=== PATIENT | female | born 1940 | race Caucasian/White ===

== ENCOUNTER 2016-11-19 20:41 | Emergency (ER) | payer MEDICARE ==
[~2016-11-19] VITALS: Ht 165.1 cm; Wt 74.8 kg
[2016-11-19] MEDS ORDERED: hydrALAZINE 20 MG/ML VIAL. ONE (20:58)
[2016-11-19 21:42] LABS: BASO # 0.1 x10^3/uL (0.0-0.2); BASO % 1 % (0-3); EOS % 2 % (0-3); HEMATOCRIT 32.2 % (36.0-47.0); HEMOGLOBIN 10.7 g/dL (12.0-15.5); LYMPH # 2.2 x10^3/uL (1.0-4.8); LYMPH % 23 % (24-48); MEAN CORPUSCULAR HEMOGLOBIN 31 pg (25-35); MEAN CORPUSCULAR HGB CONC 33 g/dL (31-37); MEAN CORPUSCULAR VOLUME 92 fL (79-100); MONO % 8 % (0-9); NEUT % 66 % (31-73); PLATELET COUNT 293 x10^3/uL (140-400); RED BLOOD COUNT 3.49 x10^6/uL (3.50-5.40); RED CELL DISTRIBUTION WIDTH 14.3 % (11.5-14.5); WHITE BLOOD COUNT 9.4 x10^3/uL (4.0-11.0)
[2016-11-19] MEDS ORDERED: hydrALAZINE 20 MG/ML VIAL. IVP ONE ×2 (21:45→22:30)
--- NOTE | 2016-11-19 22:14 | PHYS DOC ---
Past Medical History Past Medical History: CHF, Diabetes-Type II, Renal Failure, Stroke Additional Past Medical Histor: parkensions Past Surgical History: Cholecystectomy, Hysterectomy, Other Additional Past Surgical Histo: shunt left arm, cardiac stents, rt ankle Alcohol Use: None Drug Use: None Adult General Chief Complaint Chief Complaint: DIALYSIS PROBLEM HPI HPI Patient is a 76 year old female who presents here today secondary to bleeding from her dialysis shunt. Per the dialysis notes it appeared that she had lost approximately 2-300 mL of blood. Patient came in by EMS with a pressure dressing and a dialysis clamp on. Patient was still having some bleeding despite that. Patient denies any other symptomatology at this time. Patient has any fevers shakes chills nausea vomiting diarrhea chest pain shortness of breath weakness dizziness her feeling of passing out. Patient does endorse being on any anticoagulant. Patient's physical exam was significant for a small punctate area of bleeding from her dialysis shunt. We are able to apply a significant amount of possible and distal pressure to obtain hemostasis of the dialysis shunt. Once obtained the wound was evaluated. There is a small little puncture site which were able to apply Dermabond to as well as skin clotting factor. A pressure dressing was applied. Patient still had a good bruit and thrill. Patient was monitored in the ER for approximately 1 hour after hemostasis was obtained. Dressing was removed and there is no further active bleeding. Patient was instructed t leave the dressing on until she has her next dialysis. Review of systems Constitutional: Denies fever or chills [] Eyes: Denies change in visual acuity, redness, or eye pain [] All other review systems are negative except as documented in the history of present illness portion. Physical exam Constitutional: Well developed, well nourished, no acute distress, non-toxic appearance. [] HENT: Normocephalic, atraumatic Eyes: conjunctiva normal, no discharge. [] Neck: Normal range of motion, no tenderness, supple, no stridor. [] Cardiovascular:Heart rate regular rhythm, Lungs & Thorax: Bilateral breath sounds clear to auscultation [] Abdomen: Bowel sounds normal, soft, no tenderness, no masses, no pulsatile masses. [] Skin: Warm, dry, Back: No tenderness, Extremities: No tenderness, no cyanosis, see above. Neurologic: Alert and oriented X 3, normal motor function, normal sensory function, no focal deficits noted. [] Psychologic: Affect normal, judgement normal, mood normal. [] Assessment and plan 76-year-old female with end-stage renal disease on hemodialysis presents with bleeding shunt. Hemostasis obtained by applying proximal distal pressure to the shunt site and then applying Dermabond to the area of bleeding. Patient's been monitored for approximately 1 hour without any further bleeding. Patient is clinically hemodynamically stable. Patient will be started on her usual nighttime dose of clonidine 0.3 milligrams and hydralazine 25 by mouth prior to being discharged. Patient's blood pressure has been elevated here. Patient received hydralazine 25 mg IV in the ED with significant improvement in her blood pressure however is still fluctuating. Current Medications Current Medications Current Medications Medications (Trade) Dose Ordered Sig/Nga Start Time Stop Time Status Last Admin Dose Admin Hydralazine HCl (Apresoline) 25 mg 1X ONCE 11/19/16 21:45 11/19/16 21:46 DC 11/19/16 21:00 25 MG Allergies Allergies Allergies Coded Allergies Type Severity Reaction Last Updated Verified Penicillins Allergy Intermediate Rash 11/19/16 Yes Current Patient Data Vital Signs Vital Signs Date Time Temp Pulse Resp B/P (MAP) Pulse Ox O2 Delivery O2 Flow Rate FiO2 11/19/16 21:00 75 236/96 11/19/16 20:45 98.6 16 94 Room Air 98.6 Lab Values Laboratory Tests Test 11/19/16 20:51 White Blood Count 9.4 x10^3/uL (4.0-11.0) Red Blood Count 3.49 x10^6/uL (3.50-5.40) L Hemoglobin 10.7 g/dL (12.0-15.5) L Hematocrit 32.2 % (36.0-47.0) L Mean Corpuscular Volume 92 fL (79-100) Mean Corpuscular Hemoglobin 31 pg (25-35) Mean Corpuscular Hemoglobin Concent 33 g/dL (31-37) Red Cell Distribution Width 14.3 % (11.5-14.5) Platelet Count 293 x10^3/uL (140-400) Neutrophils (%) (Auto) 66 % (31-73) Lymphocytes (%) (Auto) 23 % (24-48) L Monocytes (%) (Auto) 8 % (0-9) Eosinophils (%) (Auto) 2 % (0-3) Basophils (%) (Auto) 1 % (0-3) Neutrophils # (Auto) 6.2 x10^3uL (1.8-7.7) Lymphocytes # (Auto) 2.2 x10^3/uL (1.0-4.8) Monocytes # (Auto) 0.7 x10^3/uL (0.0-1.1) Eosinophils # (Auto) 0.2 x10^3/uL (0.0-0.7) Basophils # (Auto) 0.1 x10^3/uL (0.0-0.2) Laboratory Tests 11/19/16 20:51 EKG EKG [] Radiology/Procedures Radiology/Procedures [] Course & Med Decision Making Course & Med Decision Making Pertinent Labs and Imaging studies reviewed. (See chart for details) [] Dragon Disclaimer Dragon Disclaimer This electronic medical record was generated, in whole or in part, using a voice recognition dictation system. Departure Departure Impression: Primary Impression: Hemorrhage from dialysis shunt Additional Impression: Hypertension Disposition: 01 HOME, SELF-CARE Condition: STABLE Referrals: UNKNOWN PCP NAME (PCP) Patient Instructions: Dialysis (AV) Shunt, Malfunction, Hypertension Additional Instructions: Keep dressing on until you are evaluated by dialysis on Thursday. Problem Qualifiers VIANCA CHILD MD Nov 19, 2016 22:14
[2016-11-19] MEDS ORDERED: cloNIDine HCL 0.1 MG TABLET PO ONE (22:30)
[2016-11-19 22:39] VITALS: BP 210/81
[2016-11-19] MEDS ORDERED: hydrALAZINE 25 MG TABLET PO ONE (22:45)
== END 2016-11-19 22:49 | disposition home or self-care (01) ==
LOC: ER 20:41
DX: T82.838A Hemorrhage due to vascular prosthetic devices, implants and grafts, initial encounter (principal); I13.2 Hypertensive heart and chronic kidney disease with heart failure and with stage 5 chronic kidney disease, or end stage renal disease; I50.9 Heart failure, unspecified; N18.6 End stage renal disease; E11.22 Type 2 diabetes mellitus with diabetic chronic kidney disease; Z99.2 Dependence on renal dialysis; Z86.73 Personal history of transient ischemic attack (TIA), and cerebral infarction without residual deficits; Z88.0 Allergy status to penicillin; Z95.5 Presence of coronary angioplasty implant and graft; Z90.49 Acquired absence of other specified parts of digestive tract; Y92.89 Other specified places as the place of occurrence of the external cause; Y73.3 Surgical instruments, materials and gastroenterology and urology devices (including sutures) associated with adverse incidents; Z90.710 Acquired absence of both cervix and uterus
CPT/HCPCS: 36415; 85027; 96374; 99284; J0360

== ENCOUNTER 2016-11-28 16:55 | Emergency (ER) | payer MEDICARE ==
[~2016-11-28] VITALS: Ht 166.4 cm; Wt 74.8 kg
--- NOTE | 2016-11-28 17:27 | PHYS DOC ---
Past Medical History Past Medical History: CHF, Diabetes-Type II, Renal Failure, Stroke Additional Past Medical Histor: parkensions Past Surgical History: Cholecystectomy, Hysterectomy, Other Additional Past Surgical Histo: shunt left arm, cardiac stents, rt ankle Alcohol Use: None Drug Use: None Adult General Chief Complaint Chief Complaint: DIALYSIS fistula PROBLEM HPI HPI Patient is a 76 year old female hemodialysis patient brought to the ED by her daughter secondary to bleeding dialysis fistula. When patient completed dialysis today, they removed the needles, and her needle site continued to bleed. They worked on it for an hour or more but they were not able to get it to stop bleeding. Patient states she does take Brilinta cardiac stents. She is also supposed to take low-dose aspirin but she stopped it a while back because of problems with bleeding. She did take one about 2 weeks ago when she took one this week. Patient was seen here 9 days ago for a bleeding dialysis fistula, they were able to get it stopped with pressure, skin adhesive, hemostatic topical. She states she has been seen a couple of times in the last couple of months by Dr. Varela and had some type of procedure done on her dialysis fistula. It did work fine for dialysis today. She did complete her dialysis. When she was taking her low-dose aspirin also, she did have problems with nosebleeds. No other bleeding. PCP in [facility]. The patient lives in [place]. [employer] [address] Dr. Sky Review of Systems Review of Systems Constitutional: Denies fever or chills [] Eyes: Denies change in visual acuity, redness, or eye pain [] HENT: Denies nasal congestion or sore throat [] Respiratory: Denies cough or shortness of breath [] Cardiovascular: Denies chest pain GI: Denies abdominal pain, nausea, vomiting, bloody stools or diarrhea [] : Denies dysuria or hematuria [] Musculoskeletal: Denies back pain or joint pain [] Integument: As in history of present illness for left arm dialysis fistula Neurologic: Denies headache, focal weakness or sensory changes [] Allergies Allergies Allergies Coded Allergies Type Severity Reaction Last Updated Verified Penicillins Allergy Intermediate Rash 11/19/16 Yes Physical Exam Physical Exam Constitutional: Well developed, well nourished, no acute distress, non-toxic appearance. Alert, good color, mentating normally. HENT: Normocephalic, atraumatic, bilateral external ears normal, nose normal. [ ] Eyes: conjunctiva normal, no discharge. [] Neck: Normal range of motion, no stridor. [] Cardiovascular:Heart rate regular rhythm, no murmur [] Lungs & Thorax: Bilateral breath sounds clear to auscultation [] Skin: Warm, dry, no erythema, no rash. [] Extremities: Left upper extremity: Dialysis fistula is pulsating and has a good thrill. There is a gauze bandage taped in place with paper tape. The gauze bandage is saturated with blood. Overlying additional loosely wrapped material was removed. There does not appear to be currently active bleeding. The stool neurovascular intact. Neurologic: Alert and oriented X 3, normal motor function, normal sensory function, no focal deficits noted. [] Current Patient Data Vital Signs Vital Signs Date Time Temp Pulse Resp B/P (MAP) Pulse Ox O2 Delivery O2 Flow Rate FiO2 11/28/16 16:57 97.9 79 18 219/87 (131) 96 Room Air 97.9 EKG EKG [] Radiology/Procedures Radiology/Procedures [] Course & Med Decision Making Course & Med Decision Making Pertinent Labs and Imaging studies reviewed. (See chart for details) 76-year-old lady presents with bleeding from her dialysis fistula after dialysis completed today. On presentation, she does not appear to be currently actively bleeding. The patient says she does not think she lost too much blood today. We left the gauze and paper tape that was on the fistula in place, and reinforced with a few more layers of gauze 4 x 4's and a gauze Kerlix wrap. It was not wrapped so tight as to place undue pressure on the fistula that was wrapped snugly. The patient felt that it was comfortable. The, the patient is markedly hypertensive with a systolic over 200. She states that is not unusual for her. She does take multiple blood pressure medicines including clonidine 0.3 mg 3 times a day. She did take her clonidine this morning and this afternoon as usual. She also has taken her other blood pressure medicines including hydralazine and lisinopril. The patient really does not want an IV at this time. We discussed giving her a dose of her clonidine orally and that's what she would prefer to do. The patient took a dose of her own clonidine 0.3 mg. At this time, we will observe her for further bleeding and also watch her blood pressure. Patient is stable and comfortable at this time. Patient was observed for an hour in the ED. She had no further bleeding from her dialysis fistula. Her blood pressure came down to 188/79. She remained stable and comfortable. I discussed the case with Dr. Sky, nephrology. He agrees with discharge of the patient to keep her bandage in place until seen in dialysis on Thursday. He agrees that her elevated blood pressure can be managed with her outpatient medications. I discussed with the patient and her family. The patient is eager to be discharged. She has plenty of medications at home. She is comfortable with discharge. We discussed management if she starts to bleed again. I encouraged her to call 911 if her bleeding is brisk and she is not able to control it, talked about how to manage it with direct pressure if necessary. Patient and family are comfortable with this plan. See instructions for plan. [] Dragon Disclaimer Dragon Disclaimer This electronic medical record was generated, in whole or in part, using a voice recognition dictation system. Departure Departure Impression: Primary Impression: Complication of AV dialysis fistula Additional Impression: Hypertension Disposition: HOME, SELF-CARE Condition: STABLE Referrals: UNKNOWN PCP NAME (PCP) Additional Instructions: Take meds as directed. If you have further bleeding from the fistula, applied direct pressure with a washcloth as a pressure device and return to emergency immediately. Leave the gauze wrap in place until you're seen in dialysis on Thursday. Problem Qualifiers MARIANO CASTILLO MD Nov 28, 2016 17:27
[2016-11-28 18:30] VITALS: BP 188/73
== END 2016-11-28 19:00 | disposition home or self-care (01) ==
LOC: ER 16:55
DX: T82.838A Hemorrhage due to vascular prosthetic devices, implants and grafts, initial encounter (principal); I13.0 Hypertensive heart and chronic kidney disease with heart failure and stage 1 through stage 4 chronic kidney disease, or unspecified chronic kidney disease; E11.22 Type 2 diabetes mellitus with diabetic chronic kidney disease; N18.9 Chronic kidney disease, unspecified; I50.9 Heart failure, unspecified; Z86.73 Personal history of transient ischemic attack (TIA), and cerebral infarction without residual deficits; Z99.2 Dependence on renal dialysis; Z90.49 Acquired absence of other specified parts of digestive tract; Z90.710 Acquired absence of both cervix and uterus; Z88.0 Allergy status to penicillin; Z95.5 Presence of coronary angioplasty implant and graft; Y84.1 Kidney dialysis as the cause of abnormal reaction of the patient, or of later complication, without mention of misadventure at the time of the procedure; Y92.89 Other specified places as the place of occurrence of the external cause
CPT/HCPCS: 99283

== ENCOUNTER 2017-10-01 00:09 | Emergency (ER) | payer MEDICARE | END 2017-10-01 01:08 | disposition home or self-care (01) | LOC: ER 00:09 | DX: S51.832A Puncture wound without foreign body of left forearm, initial encounter (principal); T82.838A Hemorrhage due to vascular prosthetic devices, implants and grafts, initial encounter; I50.9 Heart failure, unspecified; E11.9 Type 2 diabetes mellitus without complications; Z86.73 Personal history of transient ischemic attack (TIA), and cerebral infarction without residual deficits; Z95.5 Presence of coronary angioplasty implant and graft; Z99.2 Dependence on renal dialysis; Z88.0 Allergy status to penicillin; Y84.8 Other medical procedures as the cause of abnormal reaction of the patient, or of later complication, without mention of misadventure at the time of the procedure; Y92.89 Other specified places as the place of occurrence of the external cause | CPT/HCPCS: 12001; 99284-25 ==

== ENCOUNTER 2018-10-18 20:04 | Inpatient (IN) | payer MEDICARE ==
[~2018-10-18] VITALS: Ht 165.1 cm; Wt 70.3 kg
[2018-10-18] MEDS ORDERED: ACETAMINOPHEN 325 MG TABLET. PO ONE (20:30)
[2018-10-18 21:09] LABS: BASO # 0.1 x10^3/uL (0.0-0.2); BASO % 1 % (0-3); EOS # 0.2 x10^3/uL (0.0-0.7); EOS % 2 % (0-3); HEMATOCRIT 32.4 % (36.0-47.0); LYMPH # 1.3 x10^3/uL (1.0-4.8); LYMPH % 20 % (24-48); MEAN CORPUSCULAR HEMOGLOBIN 33 pg (25-35); MEAN CORPUSCULAR HGB CONC 34 g/dL (31-37); MEAN CORPUSCULAR VOLUME 97 fL (79-100); MONO # 0.6 x10^3/uL (0.0-1.1); MONO % 10 % (0-9); NEUT # 4.4 x10^3uL (1.8-7.7); NEUT % 67 % (31-73); PLATELET COUNT 210 x10^3/uL (140-400); RED BLOOD COUNT 3.35 x10^6/uL (3.50-5.40); RED CELL DISTRIBUTION WIDTH 14.7 % (11.5-14.5); WHITE BLOOD COUNT 6.5 x10^3/uL (4.0-11.0)
[2018-10-18 21:15] LABS: CALCIUM 8.8 mg/dL (8.5-10.1); CREATININE 3.4 mg/dL (0.6-1.0); GFR 13.1; POTASSIUM 3.3 mmol/L (3.5-5.1)
[2018-10-18 21:17] LABS: C-REACTIVE PROTEIN 3.7 mg/L (0-3.3)
--- NOTE | 2018-10-18 22:11 | PHYS DOC ---
Past Medical History Past Medical History: CHF, Diabetes-Type II, Renal Failure, Stroke Additional Past Medical Histor: parkensions Past Surgical History: Cholecystectomy, Hysterectomy, Other Additional Past Surgical Histo: shunt left arm, cardiac stents, rt ankle Alcohol Use: None Drug Use: None Adult General Chief Complaint Chief Complaint: DIALYSIS PROBLEM HPI HPI Patient is a 78 year old female with history of end-stage renal disease currently receiving dialysis's presents with bleeding from left arm AV fistula after completing dialysis this afternoon.. Patient is currently on Brilinta. She has had persistent bleeding at AV fistula site despite use of a compression dressing. Patient denies chest pain shortness of breath feeling lightheaded or dizzy. On exam, the patient has a compression bandage over left arm with control bleeding. There are good distal pulses left arm. Upon removing compression dressing, there is slight amount of bright red bleeding/wheezing proceeding from the IV puncture site. The compression dressing was then reapplied. [] Review of Systems Review of Systems Review of symptoms as prescribed. All other review symptoms are negative. All other systems were reviewed and found to be within normal limits, except as documented in this note. Current Medications Current Medications Current Medications Medications (Trade) Dose Ordered Sig/Nga Start Time Stop Time Status Last Admin Dose Admin Acetaminophen (Tylenol) 650 mg 1X ONCE 10/18/18 20:30 10/18/18 20:31 DC 10/18/18 20:26 650 MG Allergies Allergies Allergies Coded Allergies Type Severity Reaction Last Updated Verified Penicillins Allergy Intermediate Rash 11/19/16 Yes Physical Exam Physical Exam Constitutional: Well developed, well nourished, no acute distress, non-toxic appearance. [] HENT: Normocephalic, atraumatic, bilateral external ears normal, oropharynx moist, no oral exudates, nose normal. [] Eyes: PERRLA, EOMI, conjunctiva normal, no discharge. [] Neck: Normal range of motion, no tenderness, supple, no stridor. [] Cardiovascular:Heart rate regular rhythm, no murmur [] Lungs & Thorax: Bilateral breath sounds clear to auscultation [] thrill, steady ooze of bright red bleeding from dialysis catheter puncture site, palpable thrill noted, distal pulses present.. [] Neurologic: Alert and oriented X 3, normal motor function, normal sensory function, no focal deficits noted. [] Psychologic: Affect normal, judgement normal, mood normal. [] Current Patient Data Vital Signs Vital Signs Date Time Temp Pulse Resp B/P (MAP) Pulse Ox O2 Delivery O2 Flow Rate FiO2 10/18/18 20:10 97.7 74 18 156/67 (96) 93 Room Air 97.7 Lab Values Laboratory Tests Test 10/18/18 20:10 10/18/18 20:45 Glucose (Fingerstick) 154 mg/dL (70-99) H White Blood Count 6.5 x10^3/uL (4.0-11.0) Red Blood Count 3.35 x10^6/uL (3.50-5.40) L Hemoglobin 11.0 g/dL (12.0-15.5) L Hematocrit 32.4 % (36.0-47.0) L Mean Corpuscular Volume 97 fL (79-100) Mean Corpuscular Hemoglobin 33 pg (25-35) Mean Corpuscular Hemoglobin Concent 34 g/dL (31-37) Red Cell Distribution Width 14.7 % (11.5-14.5) H Platelet Count 210 x10^3/uL (140-400) Neutrophils (%) (Auto) 67 % (31-73) Lymphocytes (%) (Auto) 20 % (24-48) L Monocytes (%) (Auto) 10 % (0-9) H Eosinophils (%) (Auto) 2 % (0-3) Basophils (%) (Auto) 1 % (0-3) Neutrophils # (Auto) 4.4 x10^3uL (1.8-7.7) Lymphocytes # (Auto) 1.3 x10^3/uL (1.0-4.8) Monocytes # (Auto) 0.6 x10^3/uL (0.0-1.1) Eosinophils # (Auto) 0.2 x10^3/uL (0.0-0.7) Basophils # (Auto) 0.1 x10^3/uL (0.0-0.2) Sodium Level 137 mmol/L (136-145) Potassium Level 3.3 mmol/L (3.5-5.1) L Chloride Level 96 mmol/L (98-107) L Carbon Dioxide Level 28 mmol/L (21-32) Anion Gap 13 (6-14) Blood Urea Nitrogen 24 mg/dL (7-20) H Creatinine 3.4 mg/dL (0.6-1.0) H Estimated GFR (Cockcroft-Gault) 13.1 Glucose Level 153 mg/dL (70-99) H Calcium Level 8.8 mg/dL (8.5-10.1) C-Reactive Protein, Quantitative 3.7 mg/L (0-3.3) H Laboratory Tests 10/18/18 20:45 Laboratory Tests 10/18/18 20:45 EKG EKG [] Radiology/Procedures Radiology/Procedures [Laceration repair Procedure The patient's arm was prepped with sterile saline cleansed, #3-0 [address] was [address] to place a single whip stitched over the puncture site actively bleeding and then tied. Bleeding continued following suture placement. The compression bandage was then reapplied. Patient tolerated the procedure without compl ication] Course & Med Decision Making Course & Med Decision Making Pertinent Labs and Imaging studies reviewed. (See chart for details) [Persistent bleeding from dialysis AV fistula puncture site. Pressure controlled, H&H and platelets stable. Case reviewed with Dr. Rushing on-call for vascular surgery. Recommendations are for suture placement and continued compression dressing. Dr. Rushing to see in the morning. Will admit to the hospitalist service.] Dragon Disclaimer Dragon Disclaimer This electronic medical record was generated, in whole or in part, using a voice recognition dictation system. Departure Departure Impression: Primary Impression: Bleeding from dialysis shunt Disposition: ADMITTED INPATIENT Admitting Physician: Other (Evelyn) Condition: STABLE Referrals: DIONICIO MEDINA MD (PCP) EVA HOGAN DO October 18, 2018 22:11
[2018-10-18] MEDS ORDERED: ONDANSETRON PF 4 MG/2 ML VIAL. IV PRN (22:15)
[2018-10-18 23:20] VITALS: BP 145/52
[2018-10-18] MEDS ORDERED: SEVE800T9 PO (23:50)
[2018-10-18] MEDS ORDERED: SERT100T8 PO (23:53)
[2018-10-19] VITALS (7 sets, daily range): BP systolic 116–180; BP diastolic 53–86
[2018-10-19] MEDS ORDERED: LEVO50TA5 PO (00:15)
[2018-10-19] MEDS ORDERED: CHOL200044 PO (00:15)
[2018-10-19] MEDS ORDERED: TICA90TA PO (00:15)
[2018-10-19] MEDS ORDERED: NIFE60TA16 PO (00:15)
[2018-10-19] MEDS ORDERED: CARV25TA2 PO (00:15)
[2018-10-19] MEDS ORDERED: LISI-130 PO (00:15)
[2018-10-19] MEDS ORDERED: INSU100I17 SQ (00:15)
[2018-10-19] MEDS ORDERED: PRAV40TA2 PO (00:15)
[2018-10-19] MEDS ORDERED: CALC300T4 PO (00:15)
[2018-10-19] MEDS ORDERED: HYDR-2869 PO (00:15)
[2018-10-19 04:05] LABS: BASO % 1 % (0-3); EOS # 0.1 x10^3/uL (0.0-0.7); EOS % 3 % (0-3); HEMATOCRIT 29.5 % (36.0-47.0); LYMPH % 19 % (24-48); MEAN CORPUSCULAR HEMOGLOBIN 33 pg (25-35); MEAN CORPUSCULAR HGB CONC 34 g/dL (31-37); MEAN CORPUSCULAR VOLUME 97 fL (79-100); MONO # 0.6 x10^3/uL (0.0-1.1); MONO % 11 % (0-9); NEUT # 3.7 x10^3uL (1.8-7.7); NEUT % 67 % (31-73); PLATELET COUNT 185 x10^3/uL (140-400); RED BLOOD COUNT 3.05 x10^6/uL (3.50-5.40); RED CELL DISTRIBUTION WIDTH 14.7 % (11.5-14.5); WHITE BLOOD COUNT 5.5 x10^3/uL (4.0-11.0)
[2018-10-19 04:27] LABS: CALCIUM 8.2 mg/dL (8.5-10.1); CREATININE 3.7 mg/dL (0.6-1.0); GFR 11.9; POTASSIUM 3.3 mmol/L (3.5-5.1)
--- NOTE | 2018-10-19 08:10 | PDOC ---
Provider Note Provider Note Vascular Surgery Consult Dictated 78 year old female with ESRD on dialysis with a left upper arm AV access which was placed over a year ago at [facility]. She came to the ER because of bleeding from the dialysis IV access site. The bleeding eventually stopped with pressure and a suture. She reports episodes of prolonged bleeding from access sites in the past. The left upper arm fistula is patent, no further bleeding, suture in place, no skin breakdown/ulceration, mild swelling of the forearm. Recommend a left arm fistulogram to evaluate the fistula for possible outflow stenosis causing high pressure. No surgical intervention needed at this point. She has a left carotid bruit on exam, will obtain a duplex scan. HOLLY DE ANDA MD October 19, 2018 08:10
[2018-10-19] MEDS ORDERED: DEXTROSE 50% 25 GM / 50ML DISP.SYRIN. IV PRN (08:30)
[2018-10-19] MEDS: INSULIN LISPRO 300 UNITS/3 ML INSULN.PEN. SQ SCH ×5 (08:30→17:28)
[2018-10-19] MEDS ORDERED: ACETAMINOPHEN 500 MG TABLET PO PRN (08:30)
[2018-10-19] MEDS ORDERED: hydrALAZINE 20 MG/ML VIAL. IVP PRN (08:30)
[2018-10-19 09:34] LABS: PROTHROMBIN TIME PATIENT 15.7 SEC (11.7-14.0)
--- NOTE | 2018-10-19 09:48 | CONS ---
DATE OF CONSULTATION: 10/19/2018 CHIEF COMPLAINT: Bleeding from her left arm dialysis access. HISTORY OF PRESENT ILLNESS: The patient is a 78-year-old female with end-stage renal disease, on chronic hemodialysis. She uses a left upper arm AV fistula, which was placed by Dr. Serrato at [facility] over a year ago. She reports that she has had revisions to this fistula in the past. After dialysis yesterday, it was reported that she had continued bleeding from one of her IV access sites. She came to the Emergency Department and pressure was held on the area for an extensive amount of time, this eventually slowed the bleeding, but did not completely stopped it. I recommended to the ER doctor since the skin was normal around the access site to place a suture within it and this stopped the bleeding. She was admitted to the hospital from the Emergency Department. She has had no more further bleeding up in the floor from her access site. She does state that she has had episodes of prolonged bleeding from IV access sites in the recent past. She reports no pain in her left arm. She reports no swelling in the left arm. She reports no chest pain or shortness of breath. REVIEW OF SYSTEMS: A 10-point review of systems was performed, which is otherwise negative besides what is mentioned in the history of present illness. PAST MEDICAL HISTORY: Includes: 1. Congestive heart failure. 2. Diabetes mellitus. 3. End-stage renal disease, on chronic hemodialysis. 4. History of stroke. 5. Coronary artery disease. PAST SURGICAL HISTORY: Includes; 1. Cholecystectomy, left upper arm AV access. 2. Coronary stents. 3. Hysterectomy. 4. Left ankle fracture. ALLERGIES: Include PENICILLIN, AMLODIPINE, LATEX, MORPHINE, PREDNISONE. MEDICATIONS: Please see her full MAR. SOCIAL HISTORY: She does not smoke or use alcohol. FAMILY HISTORY: Noncontributory for her current problem. PHYSICAL EXAMINATION: GENERAL: The patient is currently awake and alert. She is in no apparent distress. VITAL SIGNS: Her last blood pressure was 170/62, pulse of 75, respirations 18. She is 98.7 temperature and afebrile. She is 94% on room air. NECK: Supple. CHEST: She does have a left-sided carotid bruit on examination. I do not hear a right bruit. HEART: Regular rate and rhythm. LUNGS: Bilateral breath sounds to auscultation. ABDOMEN: Soft, nondistended and nontender. EXTREMITIES: Her left arm and the upper arm has an AV fistula. Fistula is very mature and dilated throughout the upper arm. The wrap was removed. The two access sites from dialysis yesterday are not bleeding. One of them has a suture in place where it had prolonged bleeding and there is no hematoma. Her skin is normal and healthy with no ulceration or breakdown. There is a thrill and bruit within the fistula tract. She has mild swelling of her forearm and hand with normal motor and sensory function. Her right arm is warm without access and no swelling. Her bilateral lower extremities are warm with palpable pedal pulses. She has mild left leg swelling and redness she says from a recent fall and injury. NEUROLOGIC: She is awake and alert, oriented x 3 and alert. IMPRESSION: End-stage renal disease, on chronic hemodialysis through a left upper arm arteriovenous fistula which had prolonged bleeding from her access site from dialysis yesterday. PLAN: The patient had prolonged bleeding which required suture repair from her dialysis access site yesterday. The skin is healthy with no ulceration. There is no hematoma. There is no further bleeding. I do recommend a fistulogram to evaluate the fistula and possible outflow obstruction, which may be causing high pressures and bleeding. We will order this with Interventional Radiology today. No surgical intervention is needed at this time for the fistula since there is no further bleeding. She also has a carotid artery bruit heard on examination. I have ordered a carotid artery duplex scan. HOLLY DE ANDA MD DR: KYLIE/natasha JOB#: [id number] / [id number]
--- NOTE | 2018-10-19 10:00 | RAD ---
EXAM: Carotid Doppler sonogram. HISTORY: Carotid bruit. TECHNIQUE: Mitchell scale and color Doppler sonographic evaluation of the neck with spectral waveform analysis was performed and static images are submitted for review. FINDINGS: There is mild atherosclerotic plaque within the carotid bifurcations. The peak systolic velocity within the right common carotid artery is 86 cm/sec. The peak systolic velocity within the right internal carotid artery is 79 cm/sec and the end diastolic velocity within the right internal carotid artery is 20 cm/sec. The right ICA/CCA ratio is 0.91. The peak systolic velocity within the left common carotid artery is 181 cm/sec. The peak systolic velocity within the left internal carotid artery is 159 cm/sec and the end diastolic velocity within the left internal carotid artery is 28 cm/sec. The left ICA/CCA ratio is 0.87. There is normal antegrade flow within the right vertebral artery. There is to and fro flow within the left vertebral artery. There is an increased peak systolic velocity within the left subclavian artery, measuring 237 cm/s. IMPRESSION: 1. Elevated peak systolic velocity within the left ICA. Despite a normal left ICA to CCA ratio, this suggests 50-69% stenosis. 2. Elevated peak systolic velocity within the left subclavian artery, suggesting hemodynamically significant stenosis. There is also an abnormal waveform within the left vertebral artery which may be due to pre-subclavian steal. 2. Mild atherosclerotic plaque within the carotid bifurcations. PQRS Compliance Statement - Stenosis calculations for CT, MR and conventional angiography are based upon measurement of the distal ICA diameter in accordance with the NASCET methodology. Stenosis calculations for carotid ultrasound studies are derived from validated velocity criteria which are known to correlate with the NASCET methodology. Electronically signed by: Melisa Dunne MD (10/19/2018 9:57 AM) [place] [id number]
[2018-10-19] MEDS: CARVEDILOL 12.5 MG TABLET. PO SCH ×2 (10:21→17:23)
[2018-10-19] MEDS: CALCIUM CARBONATE 500 MG TAB.CHEW PO SCH ×3 (10:21→21:06)
[2018-10-19] MEDS: LEVOTHYROXINE 50 MCG TABLET PO SCH (10:22)
[2018-10-19] MEDS: SERTRALINE 50 MG TABLET. PO SCH (10:23)
[2018-10-19] MEDS: LISINOPRIL 20 MG TABLET PO SCH (10:23)
[2018-10-19] MEDS: CHOLECALCIFEROL (VITAMIN D3) 1,000 UNIT TABLET PO SCH (10:23)
[2018-10-19] MEDS: SEVELAMER CARBONATE 800 MG TABLET. PO SCH ×2 (10:24→10:53)
--- NOTE | 2018-10-19 10:44 | PDOC1 ---
History and Physical Date of Admission Date of Admission DATE: 10/19/18 TIME: 10:38 Identification/Chief Complaint Chief Complaint bleeding left AV fistula Source Source: Caregiver, Chart review, Patient History of Present Illness History of Present Illness 78 year old white female, ESRD on dialysis, she has had multiple issues mostly bleeding from that left AV fistula. During my encounter she is quite frustrated and annoyed already from recurrent issues with this AV fistula. Vascular surgery has seen her and plan for fistulogram and ultrasound. Recommended her to be strict nothing by mouth and she isn't happy about that. The rest of the labs are ESRD numbers namely creatinine 3.7 with a GFR in the teens, potassium 3.3. Blood pressure on the high side. Hemoglobin 10, I have reconciled home meds most especially blood pressure meds. Hold Brilinta for now since bleeding issues She Had the left AV fistula placed in [facility] about a year ago SHe Wants to go home and wants minimal tests as possible to solve her problem-as per her words PAST MEDICAL HISTORY: Includes: 1. Congestive heart failure. 2. Diabetes mellitus. 3. End-stage renal disease, on chronic hemodialysis. 4. History of stroke. 5. Coronary artery disease. PAST SURGICAL HISTORY: Includes; 1. Cholecystectomy, left upper arm AV access. 2. Coronary stents. 3. Hysterectomy. 4. Left ankle fracture. ALLERGIES: Include PENICILLIN, AMLODIPINE, LATEX, MORPHINE, PREDNISONE. Past Medical History Cardiovascular: HTN Heme/Onc: Anemia NOS Renal/: Chronic renal insuff Past Surgical History Past Surgical History: Other (av fistula creation, left arm) Family History Family History: Hypertension Social History Smoke: No ALCOHOL: none Drugs: None Current Problem List Problem List Problems Medical Problems: (1) Bleeding from dialysis shunt Status: Acute Current Medications Current Medications Current Medications Acetaminophen (Tylenol) 650 mg 1X ONCE PO Last administered on 10/18/18at 20:26; Start 10/18/18 at 20:30; Stop 10/18/18 at 20:31; Status DC Ondansetron HCl (Zofran) 4 mg PRN Q8HRS PRN IV NAUSEA/VOMITING; Start 10/18/18 at 22:15; Stop 10/19/18 at 03:36; Status DC Acetaminophen (Tylenol) 500 mg PRN Q6HRS PRN PO MILD PAIN / TEMP; Start 10/19/18 at 08:30 Hydralazine HCl (Apresoline Inj) 10 mg PRN Q4HRS PRN IVP ELEVATED BP, SEE COMMENTS; Start 10/19/18 at 08:30 Insulin Human Lispro (HumaLOG) 0-9 UNITS TIDWMEALS SQ ; Start 10/19/18 at 12:00 Dextrose (Dextrose 50%-Water Syringe) 12.5 gm PRN Q15MIN PRN IV SEE COMMENTS; Start 10/19/18 at 08:30 Lisinopril (Prinivil) 40 mg DAILY PO Last administered on 10/19/18 10:23; Start 10/19/18 at 09:00 Sevelamer Carbonate (Renvela) 1,600 mg TIDWMEALS PO Last administered on 10/19/18 10:24; Start 10/19/18 at 09:00 Calcium Carbonate/ Glycine (Tums) 500 mg TID PO Last administered on 10/19/18 10:21; Start 10/19/18 at 09:00 Carvedilol (Coreg) 25 mg BIDWMEALS PO Last administered on 10/19/18 10:21; Start 10/19/18 at 08:30 Vitamin D (Vitamin D3) 2,000 unit DAILY PO Last administered on 10/19/18 10:23; Start 10/19/18 at 09:00 Hydralazine HCl (Apresoline) 100 mg TID PO Last administered on 10/19/18at 10:24; Start 10/19/18 at 09:00 Insulin Human Lispro (HumaLOG) 5 units TIDWMEALS SQ ; Start 10/19/18 at 08:30 Levothyroxine Sodium (Synthroid) 50 mcg DAILY06 PO Last administered on 10/19/18 10:22; Start 10/19/18 at 08:30 Nifedipine (Procardia Xl) 60 mg DAILY PO Last administered on 10/19/18 10:22; Start 10/19/18 at 09:00 Atorvastatin Calcium (Lipitor) 10 mg QHS PO ; Start 10/19/18 at 21:00 Sertraline HCl (Zoloft) 150 mg DAILY PO Last administered on 10/19/18at 10:23; Start 10/19/18 at 09:00 Active Scripts Active Reported Levothyroxine Sodium 50 Mcg Tablet 1 Tab PO DAILY D3-2000 (Cholecalciferol (Vitamin D3)) 2,000 Unit Capsule 2,000 Unit PO DAILY Tums X-Str (Calcium Carbonate) 300 Mg Tab.chew 300 Mg PO TID Brilinta (Ticagrelor) 90 Mg Tablet 90 Mg PO DAILY Carvedilol 25 Mg Tablet 25 Mg PO BIDWMEALS PRN Hydralazine Hcl 50 Mg Tablet 2 Tab PO TID Lisinopril 40 Mg Tablet 1 Tab PO DAILY Nifedipine Er (Nifedipine) 60 Mg Tab.er.24 1 Tab PO DAILY Novolog Flexpen (Insulin Aspart) 100 Unit/1 Ml Insuln.pen 5 Unit SQ TID Pravastatin Sodium 40 Mg Tablet 1 Tab PO QHS Sertraline Hcl 100 Mg Tablet 1.5 Tab PO DAILY Renvela (Sevelamer Carbonate) 800 Mg Tablet 2 Tab PO TID Allergies Allergies: Coded Allergies: Penicillins (Verified Allergy, Intermediate, Rash, 11/19/16) amlodipine (Verified Allergy, Unknown, 10/19/18) latex (Verified Allergy, Unknown, 10/19/18) morphine (Verified Allergy, Unknown, 10/19/18) ondansetron (Verified Allergy, Unknown, 10/19/18) prednisone (Verified Allergy, Unknown, 10/19/18) ROS Review of System A 14 point ROS was completed with the following noted as positive: Other systems reviewed and negative. \CONSTITUTIONAL: No fever or chills EYES: No recent changes SKIN: No rash or itching CARDIOVASCULAR: No chest pain, syncope, palpitations, or edema RESPIRATORY: No SOB or cough GASTROINTESTINAL: No nausea, vomiting or abdominal pain NEUROLOGICAL: No headaches or weakness ENDOCRINE: No cold or heat intolerance GENITOURINARY: No urgency or frequency of urination MUSCULOSKELETAL: No back pain or joint pain LYMPHATICS: No enlarged lymph nodes PSYCHIATRIC: No anxiety or depression Physical Exam General: Alert, Oriented X3, Cooperative, No acute distress HEENT: Atraumatic, PERRLA, EOMI Lungs: Clear to auscultation, Normal air movement Heart: S1S2, RRR, no thrills, no rubs, no gallops, no murmurs Cardiovascular: S1, S2 Abdomen: Normal bowel sounds, Soft, No tenderness, No hepatosplenomegaly, No masses Rectal Exam: not examined PELVIC: Nml ext genitalia Extremities: No clubbing, No cyanosis, Normal pulses, Other (dressing on that left arm) Skin: No rashes, No breakdown, No significant lesion Neuro: Normal gait, Normal speech, Strength at 5/5 X4 ext, Normal tone, Sensation intact, Cranial nerves 3-12 NL, Reflexes 2+ Psych/Mental Status: Mental status NL, Mood NL Vitals Vitals Vital Signs Date Time Temp Pulse Resp B/P (MAP) Pulse Ox O2 Delivery O2 Flow Rate FiO2 10/19/18 10:24 75 170/62 10/19/18 07:00 98.7 18 94 Room Air 98.7 10/18/18 23:05 2.0 Labs Labs Laboratory Tests Test 10/18/18 20:10 10/18/18 20:45 10/19/18 02:50 10/19/18 08:42 Glucose (Fingerstick) 154 mg/dL (70-99) White Blood Count 6.5 x10^3/uL (4.0-11.0) 5.5 x10^3/uL (4.0-11.0) Red Blood Count 3.35 x10^6/uL (3.50-5.40) 3.05 x10^6/uL (3.50-5.40) Hemoglobin 11.0 g/dL (12.0-15.5) 10.0 g/dL (12.0-15.5) Hematocrit 32.4 % (36.0-47.0) 29.5 % (36.0-47.0) Mean Corpuscular Volume 97 fL (79-100) 97 fL (79-100) Mean Corpuscular Hemoglobin 33 pg (25-35) 33 pg (25-35) Mean Corpuscular Hemoglobin Concent 34 g/dL (31-37) 34 g/dL (31-37) Red Cell Distribution Width 14.7 % (11.5-14.5) 14.7 % (11.5-14.5) Platelet Count 210 x10^3/uL (140-400) 185 x10^3/uL (140-400) Neutrophils (%) (Auto) 67 % (31-73) 67 % (31-73) Lymphocytes (%) (Auto) 20 % (24-48) 19 % (24-48) Monocytes (%) (Auto) 10 % (0-9) 11 % (0-9) Eosinophils (%) (Auto) 2 % (0-3) 3 % (0-3) Basophils (%) (Auto) 1 % (0-3) 1 % (0-3) Neutrophils # (Auto) 4.4 x10^3uL (1.8-7.7) 3.7 x10^3uL (1.8-7.7) Lymphocytes # (Auto) 1.3 x10^3/uL (1.0-4.8) 1.0 x10^3/uL (1.0-4.8) Monocytes # (Auto) 0.6 x10^3/uL (0.0-1.1) 0.6 x10^3/uL (0.0-1.1) Eosinophils # (Auto) 0.2 x10^3/uL (0.0-0.7) 0.1 x10^3/uL (0.0-0.7) Basophils # (Auto) 0.1 x10^3/uL (0.0-0.2) 0.0 x10^3/uL (0.0-0.2) Sodium Level 137 mmol/L (136-145) 139 mmol/L (136-145) Potassium Level 3.3 mmol/L (3.5-5.1) 3.3 mmol/L (3.5-5.1) Chloride Level 96 mmol/L (98-107) 99 mmol/L (98-107) Carbon Dioxide Level 28 mmol/L (21-32) 28 mmol/L (21-32) Anion Gap 13 (6-14) 12 (6-14) Blood Urea Nitrogen 24 mg/dL (7-20) 26 mg/dL (7-20) Creatinine 3.4 mg/dL (0.6-1.0) 3.7 mg/dL (0.6-1.0) Estimated GFR (Cockcroft-Gault) 13.1 11.9 Glucose Level 153 mg/dL (70-99) 169 mg/dL (70-99) Calcium Level 8.8 mg/dL (8.5-10.1) 8.2 mg/dL (8.5-10.1) C-Reactive Protein, Quantitative 3.7 mg/L (0-3.3) Prothrombin Time 15.7 SEC (11.7-14.0) Prothromb Time International Ratio 1.3 (0.8-1.1) Activated Partial Thromboplast Time 42 SEC (24-38) Test 10/19/18 08:56 Glucose (Fingerstick) 108 mg/dL (70-99) Laboratory Tests Test 10/18/18 20:10 10/18/18 20:45 10/19/18 02:50 10/19/18 08:42 Glucose (Fingerstick) 154 mg/dL (70-99) White Blood Count 6.5 x10^3/uL (4.0-11.0) 5.5 x10^3/uL (4.0-11.0) Red Blood Count 3.35 x10^6/uL (3.50-5.40) 3.05 x10^6/uL (3.50-5.40) Hemoglobin 11.0 g/dL (12.0-15.5) 10.0 g/dL (12.0-15.5) Hematocrit 32.4 % (36.0-47.0) 29.5 % (36.0-47.0) Mean Corpuscular Volume 97 fL (79-100) 97 fL (79-100) Mean Corpuscular Hemoglobin 33 pg (25-35) 33 pg (25-35) Mean Corpuscular Hemoglobin Concent 34 g/dL (31-37) 34 g/dL (31-37) Red Cell Distribution Width 14.7 % (11.5-14.5) 14.7 % (11.5-14.5) Platelet Count 210 x10^3/uL (140-400) 185 x10^3/uL (140-400) Neutrophils (%) (Auto) 67 % (31-73) 67 % (31-73) Lymphocytes (%) (Auto) 20 % (24-48) 19 % (24-48) Monocytes (%) (Auto) 10 % (0-9) 11 % (0-9) Eosinophils (%) (Auto) 2 % (0-3) 3 % (0-3) Basophils (%) (Auto) 1 % (0-3) 1 % (0-3) Neutrophils # (Auto) 4.4 x10^3uL (1.8-7.7) 3.7 x10^3uL (1.8-7.7) Lymphocytes # (Auto) 1.3 x10^3/uL (1.0-4.8) 1.0 x10^3/uL (1.0-4.8) Monocytes # (Auto) 0.6 x10^3/uL (0.0-1.1) 0.6 x10^3/uL (0.0-1.1) Eosinophils # (Auto) 0.2 x10^3/uL (0.0-0.7) 0.1 x10^3/uL (0.0-0.7) Basophils # (Auto) 0.1 x10^3/uL (0.0-0.2) 0.0 x10^3/uL (0.0-0.2) Sodium Level 137 mmol/L (136-145) 139 mmol/L (136-145) Potassium Level 3.3 mmol/L (3.5-5.1) 3.3 mmol/L (3.5-5.1) Chloride Level 96 mmol/L (98-107) 99 mmol/L (98-107) Carbon Dioxide Level 28 mmol/L (21-32) 28 mmol/L (21-32) Anion Gap 13 (6-14) 12 (6-14) Blood Urea Nitrogen 24 mg/dL (7-20) 26 mg/dL (7-20) Creatinine 3.4 mg/dL (0.6-1.0) 3.7 mg/dL (0.6-1.0) Estimated GFR (Cockcroft-Gault) 13.1 11.9 Glucose Level 153 mg/dL (70-99) 169 mg/dL (70-99) Calcium Level 8.8 mg/dL (8.5-10.1) 8.2 mg/dL (8.5-10.1) C-Reactive Protein, Quantitative 3.7 mg/L (0-3.3) Prothrombin Time 15.7 SEC (11.7-14.0) Prothromb Time International Ratio 1.3 (0.8-1.1) Activated Partial Thromboplast Time 42 SEC (24-38) Test 10/19/18 08:56 Glucose (Fingerstick) 108 mg/dL (70-99) VTE Prophylaxis Ordered VTE Prophylaxis Devices: Contraindicated VTE Pharmacological Prophylaxi: Contraindicated Assessment/Plan Assessment/Plan Recurrent bleeding left AV fistula, left arm-for fistulogram and ultrasound ESRD on dialysis Mild hypokalemia Hx CHF, possibly diastolic Diabetes mellitus controlled History CAD and stroke with cardiac stents on Brilinta PLAN: Admit 2 MN Vascular surgery ordered fistulogram and ultrasound Nothing by mouth per vascular surgery recommendations Replace K only 20 mEq Dialysis per renal Discussed with patient and RN Full code Sliding-scale insulin, other supportive meds Hold Camilo I have reconciled home meds except JOSE Sandhu MD October 19, 2018 10:44
[2018-10-19] MEDS ORDERED: POTASSIUM CHLORIDE 20 MEQ TABLET.ER. PO ONE (10:45)
[2018-10-19] MEDS ORDERED: LIDOCAINE WITH 8.4% SOD BICARB 3 ML DISP.SYRIN. ONE (12:30)
[2018-10-19] MEDS ORDERED: IODIXANOL 320 MG/ML 100 ML VIAL. ONE (12:31)
[2018-10-19] MEDS ORDERED: fentaNYL PF VIAL 100 MCG/2 ML VIAL ONE (12:40)
[2018-10-19] MEDS ORDERED: HEPARIN for IV BOLUS 10,000 UNIT/10 ML VIAL. ONE ×2 (12:40→13:10)
[2018-10-19] MEDS ORDERED: MIDAZOLAM HCL/PF 2 MG/2 ML VIAL. ONE (12:40)
[2018-10-19] MEDS ORDERED: MIDAZOLAM HCL/PF 2 MG/2 ML VIAL. IV ONE (12:45)
[2018-10-19] MEDS ORDERED: IODIXANOL 320 MG/ML 100 ML VIAL. IART ONE (12:45)
[2018-10-19] MEDS ORDERED: fentaNYL PF VIAL 100 MCG/2 ML VIAL IV ONE (12:45)
[2018-10-19] MEDS ORDERED: LIDOCAINE WITH 8.4% SOD BICARB 3 ML DISP.SYRIN. IJ ONE (12:45)
[2018-10-19] MEDS ORDERED: CONTRAST GIVEN. MC PRN (12:45)
[2018-10-19] MEDS ORDERED: IODIXANOL 320 MG/ML 50ML VIAL. ONE (13:09)
[2018-10-19] MEDS ORDERED: HEPARIN for IV BOLUS 10,000 UNIT/10 ML VIAL. IV ONE (13:15)
[2018-10-19] MEDS ORDERED: IODIXANOL 320 MG/ML 50ML VIAL. IART ONE (13:15)
--- NOTE | 2018-10-19 13:15 | PDOC2 ---
CONSULT Date of Consult Date of Consult DATE: 10/19/18 TIME: 13:02 Reason for Consult Reason for Consult: ESRD Source Source: Chart review, Patient History of Present Illness Reason for Visit: Pt is a 78 year old white female, ESRD on dialysis, she is hospitalized for bleeding from that left AV fistula. She goes to [facility] Op [facility]- Dr. Varela , she reports has been on HD for approx 6 years. She doesnt have any significant RRF Currently she denies any complaints, states she wants to take care of the fistula and go home today Vascular surgery has seen her and plan for fistulogram and ultrasound. Past Medical History Cardiovascular: HTN Heme/Onc: Anemia NOS Renal/: Chronic renal insuff Past Surgical History Past Surgical History: Other (av fistula creation, left arm) Family History Family History: Hypertension Social History No ALCOHOL: none Drugs: None Current Problem List Problem List Problems Medical Problems: (1) Bleeding from dialysis shunt Status: Acute Current Medications Current Medications Current Medications Acetaminophen (Tylenol) 650 mg 1X ONCE PO Last administered on 10/18/18at 20:26; Start 10/18/18 at 20:30; Stop 10/18/18 at 20:31; Status DC Ondansetron HCl (Zofran) 4 mg PRN Q8HRS PRN IV NAUSEA/VOMITING; Start 10/18/18 at 22:15; Stop 10/19/18 at 03:36; Status DC Acetaminophen (Tylenol) 500 mg PRN Q6HRS PRN PO MILD PAIN / TEMP; Start 09/30 06/19 at 08:30 Hydralazine HCl (Apresoline Inj) 10 mg PRN Q4HRS PRN IVP ELEVATED BP, SEE COMMENTS; Start 10/19/18 at 08:30 Insulin Human Lispro (HumaLOG) 0-9 UNITS TIDWMEALS SQ ; Start 10/19/18 at 12:00 Dextrose (Dextrose 50%-Water Syringe) 12.5 gm PRN Q15MIN PRN IV SEE COMMENTS; Start 10/19/18 at 08:30 Lisinopril (Prinivil) 40 mg DAILY PO Last administered on 10/19/18at 10:23; S tart 10/19/18 at 09:00 Sevelamer Carbonate (Renvela) 1,600 mg TIDWMEALS PO Last administered on 5/21/19at 10:24; Start 10/19/18 at 09:00; Stop 10/19/18 at 12:09; Status DC Calcium Carbonate/ Glycine (Tums) 500 mg TID PO Last administered on 10/19/18 10:21; Start 10/19/18 at 09:00 Carvedilol (Coreg) 25 mg BIDWMEALS PO Last administered on 10/19/18 10:21; Start 10/19/18 at 08:30 Vitamin D (Vitamin D3) 2,000 unit DAILY PO Last administered on 10/19/18 10:23; Start 10/19/18 at 09:00 Hydralazine HCl (Apresoline) 100 mg TID PO Last administered on 10/19/18 10:24; Start 10/19/18 at 09:00 Insulin Human Lispro (HumaLOG) 5 units TIDWMEALS SQ ; Start 10/19/18 at 08:30 Levothyroxine Sodium (Synthroid) 50 mcg DAILY06 PO Last administered on 10/19/18 10:22; Start 10/19/18 at 08:30 Nifedipine (Procardia Xl) 60 mg DAILY PO Last administered on 10/19/18 10:22; Start 10/19/18 at 09:00 Atorvastatin Calcium (Lipitor) 10 mg QHS PO ; Start 10/19/18 at 21:00 Sertraline HCl (Zoloft) 150 mg DAILY PO Last administered on 10/19/18at 10:23; Start 10/19/18 at 09:00 Potassium Chloride (Klor-Con) 20 meq 1X ONCE PO ; Start 10/19/18 at 10:45; Stop 10/19/18 at 10:46; Status DC Lidocaine/Sodium Bicarbonate (Buffered Lidocaine 1%) 3 ml STK-MED ONCE .ROUTE ; Start 10/19/18 at 12:30; Stop 10/19/18 at 12:31; Status DC Heparin Sodium/ Sodium Chloride 500 ml @ As Directed STK-MED ONCE .ROUTE ; Start 10/19/18 at 12:31; Stop 10/19/18 at 12:32; Status DC Iodixanol (Visipaque 320) 100 ml STK-MED ONCE .ROUTE ; Start 10/19/18 at 12:31; Stop 10/19/18 at 12:32; Status DC Heparin Sodium/ Sodium Chloride (HEPARIN for ARTERIAL LINE FLUSH) 1,000 unit 1X ONCE IART ; Start 10/19/18 at 12:45; Stop 10/19/18 at 12:46; Status DC Lidocaine/Sodium Bicarbonate (Buffered Lidocaine 1%) 3 ml 1X ONCE IJ ; Start 10/19/18 at 12:45; Stop 10/19/18 at 12:46; Status DC Midazolam HCl (Versed) 2 mg 1X ONCE IV ; Start 10/19/18 at 12:45; Stop 10/19/18 at 12:46; Status DC Fentanyl Citrate (Fentanyl 2ml Vial) 100 mcg 1X ONCE IV ; Start 10/19/18 at 12:45; Stop 10/19/18 at 12:46; Status DC Iodixanol (Visipaque 320) 100 ml 1X ONCE IART ; Start 10/19/18 at 12:45; Stop 10/19/18 at 12:46; Status DC Info (CONTRAST GIVEN -- Rx MONITORING) 1 each PRN DAILY PRN MC SEE COMMENTS; Start 10/19/18 at 12:45; Stop 10/21/18 at 12:44 Midazolam HCl (Versed) 2 mg STK-MED ONCE .ROUTE ; Start 10/19/18 at 12:40; Stop 10/19/18 at 12:41; Status DC Fentanyl Citrate (Fentanyl 2ml Vial) 100 mcg STK-MED ONCE .ROUTE ; Start 10/19/18 at 12:40; Stop 10/19/18 at 12:41; Status DC Heparin Sodium (Porcine) (Heparin Sodium) 10,000 unit STK-MED ONCE .ROUTE ; Start 10/19/18 at 12:40; Stop 10/19/18 at 12:41; Status DC Active Scripts Active Reported Levothyroxine Sodium 50 Mcg Tablet 1 Tab PO DAILY D3-2000 (Cholecalciferol (Vitamin D3)) 2,000 Unit Capsule 2,000 Unit PO DAILY Tums X-Str (Calcium Carbonate) 300 Mg Tab.chew 300 Mg PO TID Brilinta (Ticagrelor) 90 Mg Tablet 90 Mg PO DAILY Carvedilol 25 Mg Tablet 25 Mg PO BIDWMEALS PRN Hydralazine Hcl 50 Mg Tablet 2 Tab PO TID Lisinopril 40 Mg Tablet 1 Tab PO DAILY Nifedipine Er (Nifedipine) 60 Mg Tab.er.24 1 Tab PO DAILY Novolog Flexpen (Insulin Aspart) 100 Unit/1 Ml Insuln.pen 5 Unit SQ TID Pravastatin Sodium 40 Mg Tablet 1 Tab PO QHS Sertraline Hcl 100 Mg Tablet 1.5 Tab PO DAILY Renvela (Sevelamer Carbonate) 800 Mg Tablet 2 Tab PO TID Allergies Allergies: Coded Allergies: sevelamer (Verified Allergy, Severe, Anaphylaxis, 10/19/18) Penicillins (Verified Allergy, Intermediate, Rash, 11/19/16) amlodipine (Verified Allergy, Intermediate, 10/19/18) latex (Verified Allergy, Intermediate, 10/19/18) morphine (Verified Allergy, Intermediate, 10/19/18) ondansetron (Verified Allergy, Intermediate, 10/19/18) prednisone (Verified Allergy, Intermediate, 10/19/18) ROS Review of System As per HPI Physical Exam Physical Exam General: No acute distress HEENT: OM moist Lungs: Clear to auscultation, Non labored Heart: S1S2, RRR, Abdomen: Normal bowel sounds, Soft, Extremities: Trace LE edema Lt > Rt (Pt reports Lt was affected by polio) dressing on that left arm- AV access Skin: No rashes Neuro: Grossly normal Psych/Mental Status: Mental status NL, Mood NL - No Martines Vital Signs Vital Signs Date Time Temp Pulse Resp B/P (MAP) Pulse Ox O2 Delivery O2 Flow Rate FiO2 10/19/18 11:00 99.7 77 18 174/69 (104) 96 Room Air 99.7 10/18/18 23:05 2.0 Assessment & Plan ESRD -On HD MWF- Dr. Varela Last Dialysis yesterday Currently No emergent indication for HD Access- Lt Upper arm AVF- Bleeding Vascular consulted , fistulogram CHF-? Diastolic Compensated Hypokalemia- Mild HTN- BP high Antihypertensives Anemia- Hgb stable Diabetes mellitus per primary History CAD and stroke with cardiac stents on Brilinta Held for Fistulogram Labs Labs Laboratory Tests Test 10/18/18 20:10 10/18/18 20:45 10/19/18 02:50 10/19/18 08:42 Glucose (Fingerstick) 154 mg/dL (70-99) White Blood Count 6.5 x10^3/uL (4.0-11.0) 5.5 x10^3/uL (4.0-11.0) Red Blood Count 3.35 x10^6/uL (3.50-5.40) 3.05 x10^6/uL (3.50-5.40) Hemoglobin 11.0 g/dL (12.0-15.5) 10.0 g/dL (12.0-15.5) Hematocrit 32.4 % (36.0-47.0) 29.5 % (36.0-47.0) Mean Corpuscular Volume 97 fL (79-100) 97 fL (79-100) Mean Corpuscular Hemoglobin 33 pg (25-35) 33 pg (25-35) Mean Corpuscular Hemoglobin Concent 34 g/dL (31-37) 34 g/dL (31-37) Red Cell Distribution Width 14.7 % (11.5-14.5) 14.7 % (11.5-14.5) Platelet Count 210 x10^3/uL (140-400) 185 x10^3/uL (140-400) Neutrophils (%) (Auto) 67 % (31-73) 67 % (31-73) Lymphocytes (%) (Auto) 20 % (24-48) 19 % (24-48) Monocytes (%) (Auto) 10 % (0-9) 11 % (0-9) Eosinophils (%) (Auto) 2 % (0-3) 3 % (0-3) Basophils (%) (Auto) 1 % (0-3) 1 % (0-3) Neutrophils # (Auto) 4.4 x10^3uL (1.8-7.7) 3.7 x10^3uL (1.8-7.7) Lymphocytes # (Auto) 1.3 x10^3/uL (1.0-4.8) 1.0 x10^3/uL (1.0-4.8) Monocytes # (Auto) 0.6 x10^3/uL (0.0-1.1) 0.6 x10^3/uL (0.0-1.1) Eosinophils # (Auto) 0.2 x10^3/uL (0.0-0.7) 0.1 x10^3/uL (0.0-0.7) Basophils # (Auto) 0.1 x10^3/uL (0.0-0.2) 0.0 x10^3/uL (0.0-0.2) Sodium Level 137 mmol/L (136-145) 139 mmol/L (136-145) Potassium Level 3.3 mmol/L (3.5-5.1) 3.3 mmol/L (3.5-5.1) Chloride Level 96 mmol/L (98-107) 99 mmol/L (98-107) Carbon Dioxide Level 28 mmol/L (21-32) 28 mmol/L (21-32) Anion Gap 13 (6-14) 12 (6-14) Blood Urea Nitrogen 24 mg/dL (7-20) 26 mg/dL (7-20) Creatinine 3.4 mg/dL (0.6-1.0) 3.7 mg/dL (0.6-1.0) Estimated GFR (Cockcroft-Gault) 13.1 11.9 Glucose Level 153 mg/dL (70-99) 169 mg/dL (70-99) Calcium Level 8.8 mg/dL (8.5-10.1) 8.2 mg/dL (8.5-10.1) C-Reactive Protein, Quantitative 3.7 mg/L (0-3.3) Prothrombin Time 15.7 SEC (11.7-14.0) Prothromb Time International Ratio 1.3 (0.8-1.1) Activated Partial Thromboplast Time 42 SEC (24-38) Test 10/19/18 08:56 10/19/18 11:46 Glucose (Fingerstick) 108 mg/dL (70-99) 126 mg/dL (70-99) Laboratory Tests Test 10/18/18 20:10 10/18/18 20:45 10/19/18 02:50 10/19/18 08:42 Glucose (Fingerstick) 154 mg/dL (70-99) White Blood Count 6.5 x10^3/uL (4.0-11.0) 5.5 x10^3/uL (4.0-11.0) Red Blood Count 3.35 x10^6/uL (3.50-5.40) 3.05 x10^6/uL (3.50-5.40) Hemoglobin 11.0 g/dL (12.0-15.5) 10.0 g/dL (12.0-15.5) Hematocrit 32.4 % (36.0-47.0) 29.5 % (36.0-47.0) Mean Corpuscular Volume 97 fL (79-100) 97 fL (79-100) Mean Corpuscular Hemoglobin 33 pg (25-35) 33 pg (25-35) Mean Corpuscular Hemoglobin Concent 34 g/dL (31-37) 34 g/dL (31-37) Red Cell Distribution Width 14.7 % (11.5-14.5) 14.7 % (11.5-14.5) Platelet Count 210 x10^3/uL (140-400) 185 x10^3/uL (140-400) Neutrophils (%) (Auto) 67 % (31-73) 67 % (31-73) Lymphocytes (%) (Auto) 20 % (24-48) 19 % (24-48) Monocytes (%) (Auto) 10 % (0-9) 11 % (0-9) Eosinophils (%) (Auto) 2 % (0-3) 3 % (0-3) Basophils (%) (Auto) 1 % (0-3) 1 % (0-3) Neutrophils # (Auto) 4.4 x10^3uL (1.8-7.7) 3.7 x10^3uL (1.8-7.7) Lymphocytes # (Auto) 1.3 x10^3/uL (1.0-4.8) 1.0 x10^3/uL (1.0-4.8) Monocytes # (Auto) 0.6 x10^3/uL (0.0-1.1) 0.6 x10^3/uL (0.0-1.1) Eosinophils # (Auto) 0.2 x10^3/uL (0.0-0.7) 0.1 x10^3/uL (0.0-0.7) Basophils # (Auto) 0.1 x10^3/uL (0.0-0.2) 0.0 x10^3/uL (0.0-0.2) Sodium Level 137 mmol/L (136-145) 139 mmol/L (136-145) Potassium Level 3.3 mmol/L (3.5-5.1) 3.3 mmol/L (3.5-5.1) Chloride Level 96 mmol/L (98-107) 99 mmol/L (98-107) Carbon Dioxide Level 28 mmol/L (21-32) 28 mmol/L (21-32) Anion Gap 13 (6-14) 12 (6-14) Blood Urea Nitrogen 24 mg/dL (7-20) 26 mg/dL (7-20) Creatinine 3.4 mg/dL (0.6-1.0) 3.7 mg/dL (0.6-1.0) Estimated GFR (Cockcroft-Gault) 13.1 11.9 Glucose Level 153 mg/dL (70-99) 169 mg/dL (70-99) Calcium Level 8.8 mg/dL (8.5-10.1) 8.2 mg/dL (8.5-10.1) C-Reactive Protein, Quantitative 3.7 mg/L (0-3.3) Prothrombin Time 15.7 SEC (11.7-14.0) Prothromb Time International Ratio 1.3 (0.8-1.1) Activated Partial Thromboplast Time 42 SEC (24-38) Test 10/19/18 08:56 10/19/18 11:46 Glucose (Fingerstick) 108 mg/dL (70-99) 126 mg/dL (70-99) Review All relevant outside records, renal labs, imaging studies, telemetry/EKG's were reviewed. JANIYA SANCHEZ MD October 19, 2018 13:15
--- NOTE | 2018-10-19 15:30 | RAD ---
10/19/2018 1.Left upper extremity fistulogram 2.Balloon angioplasty, left subclavian venous stenosis Indication: Pulsatile left upper extremity AV fistula with prolonged bleeding at dialysis Discussion: The risks and benefits of the procedure were discussed the patient. Informed consent was obtained. A timeout procedure was performed. The left upper extremity was prepped and draped using sterile barrier technique. All elements of maximal sterile barrier technique including the use of a cap, mask, sterile gown, sterile gloves, large sterile sheet, appropriate hand hygiene, and 2% chlorhexidine for cutaneous antisepsis (or acceptable alternative antiseptic per current guidelines) were followed for this procedure. 1% lidocaine without epinephrine was administered for local anesthesia. The left upper extremity fistula was accessed using micropuncture technique. Fistulogram was were obtained demonstrating high-grade stenosis in the left subclavian vein. Proximalmost fistula was not evaluated. There is a left cephalic outflow vein stent which appears grossly patent. Multiple collaterals are noted on initial venogram. The stenosis was traversed the catheter and guidewire. Balloon dilatation was performed with a 8 mm balloon, and subsequently a 12 mm balloon. Repeat venograms demonstrated significantly improved morphology and flow through the previously stenotic lesion with significant decrease in collateral filling. Fistula is also less pulsatile and significantly soft or following venoplasty. The sheath was removed over pursestring suture. Sterile dressings were applied. No immediate complications were identified. Total fluoroscopy time: 3.7 minutes Dose area product: 17 Gycm2 [id number] moderate sedation time: 36 Minutes. The procedure was performed under conscious sedation including continuous cardiopulmonary monitoring via a dedicated sedation nurse. Impression: High-grade stenosis, left subclavian vein successfully treated with balloon dilatation as described
[2018-10-19] MEDS ORDERED: ATORVASTATIN CALCIUM 10 MG TABLET. PO SCH (21:00)
[2018-10-20 03:25] VITALS: BP 128/51
[2018-10-20] MEDS: LEVOTHYROXINE 50 MCG TABLET PO SCH (05:32)
[2018-10-20] MEDS ORDERED: IV NORMAL SALINE 1000ML BAG 1,000 ML IV PRN ×2 (07:00)
--- NOTE | 2018-10-20 07:38 | PDOC ---
SURGICAL PROGRESS NOTE Subjective Doing well this am. No new complaints. About to start dialysis. Vital Signs Vital Signs Date Time Temp Pulse Resp B/P (MAP) Pulse Ox O2 Delivery O2 Flow Rate FiO2 10/20/18 03:25 98.1 69 18 128/51 (76) 92 Room Air 98.1 10/19/18 13:29 2.0 I&O Intake and Output 10/20/18 06:59 Intake Total 1090 ml Balance 1090 ml Intake Oral 1090 ml # Voids 6 General: Alert, Oriented X3, Cooperative HEENT: Atraumatic, PERRLA Lungs: Clear to auscultation, Normal air movement Heart: Regular rate, Normal S1, Normal S2 Extremities: Other (left arm fistula with ) Labs Laboratory Tests Test 10/18/18 20:10 10/18/18 20:45 10/19/18 02:50 10/19/18 08:42 Glucose (Fingerstick) 154 mg/dL (70-99) White Blood Count 6.5 x10^3/uL (4.0-11.0) 5.5 x10^3/uL (4.0-11.0) Red Blood Count 3.35 x10^6/uL (3.50-5.40) 3.05 x10^6/uL (3.50-5.40) Hemoglobin 11.0 g/dL (12.0-15.5) 10.0 g/dL (12.0-15.5) Hematocrit 32.4 % (36.0-47.0) 29.5 % (36.0-47.0) Mean Corpuscular Volume 97 fL (79-100) 97 fL (79-100) Mean Corpuscular Hemoglobin 33 pg (25-35) 33 pg (25-35) Mean Corpuscular Hemoglobin Concent 34 g/dL (31-37) 34 g/dL (31-37) Red Cell Distribution Width 14.7 % (11.5-14.5) 14.7 % (11.5-14.5) Platelet Count 210 x10^3/uL (140-400) 185 x10^3/uL (140-400) Neutrophils (%) (Auto) 67 % (31-73) 67 % (31-73) Lymphocytes (%) (Auto) 20 % (24-48) 19 % (24-48) Monocytes (%) (Auto) 10 % (0-9) 11 % (0-9) Eosinophils (%) (Auto) 2 % (0-3) 3 % (0-3) Basophils (%) (Auto) 1 % (0-3) 1 % (0-3) Neutrophils # (Auto) 4.4 x10^3uL (1.8-7.7) 3.7 x10^3uL (1.8-7.7) Lymphocytes # (Auto) 1.3 x10^3/uL (1.0-4.8) 1.0 x10^3/uL (1.0-4.8) Monocytes # (Auto) 0.6 x10^3/uL (0.0-1.1) 0.6 x10^3/uL (0.0-1.1) Eosinophils # (Auto) 0.2 x10^3/uL (0.0-0.7) 0.1 x10^3/uL (0.0-0.7) Basophils # (Auto) 0.1 x10^3/uL (0.0-0.2) 0.0 x10^3/uL (0.0-0.2) Sodium Level 137 mmol/L (136-145) 139 mmol/L (136-145) Potassium Level 3.3 mmol/L (3.5-5.1) 3.3 mmol/L (3.5-5.1) Chloride Level 96 mmol/L (98-107) 99 mmol/L (98-107) Carbon Dioxide Level 28 mmol/L (21-32) 28 mmol/L (21-32) Anion Gap 13 (6-14) 12 (6-14) Blood Urea Nitrogen 24 mg/dL (7-20) 26 mg/dL (7-20) Creatinine 3.4 mg/dL (0.6-1.0) 3.7 mg/dL (0.6-1.0) Estimated GFR (Cockcroft-Gault) 13.1 11.9 Glucose Level 153 mg/dL (70-99) 169 mg/dL (70-99) Calcium Level 8.8 mg/dL (8.5-10.1) 8.2 mg/dL (8.5-10.1) C-Reactive Protein, Quantitative 3.7 mg/L (0-3.3) Prothrombin Time 15.7 SEC (11.7-14.0) Prothromb Time International Ratio 1.3 (0.8-1.1) Activated Partial Thromboplast Time 42 SEC (24-38) Test 10/19/18 08:56 10/19/18 11:46 10/19/18 17:13 10/19/18 20:58 Glucose (Fingerstick) 108 mg/dL (70-99) 126 mg/dL (70-99) 155 mg/dL (70-99) 82 mg/dL (70-99) Laboratory Tests Test 10/19/18 08:42 10/19/18 08:56 10/19/18 11:46 10/19/18 17:13 Prothrombin Time 15.7 SEC (11.7-14.0) Prothromb Time International Ratio 1.3 (0.8-1.1) Activated Partial Thromboplast Time 42 SEC (24-38) Glucose (Fingerstick) 108 mg/dL (70-99) 126 mg/dL (70-99) 155 mg/dL (70-99) Test 10/19/18 20:58 Glucose (Fingerstick) 82 mg/dL (70-99) Problem List Problems Medical Problems: (1) Bleeding from dialysis shunt Status: Acute Assessment/Plan ESRD--S/p balloon angioplasty. Could require intermittent outflow angioplasty every 3-6 mo with IR to maintain patency and prevent venous hypertension. Ok to D/C after dialysis. Will sign off today. JASON KERR DO October 20, 2018 07:38
[2018-10-20] MEDS: INSULIN LISPRO 300 UNITS/3 ML INSULN.PEN. SQ SCH ×4 (08:00→11:26)
[2018-10-20] MEDS ORDERED: DIALYSIS PATIENT. MC PRN ×2 (08:45)
--- NOTE | 2018-10-20 10:39 | PDOC ---
SUBJECTIVE ROS Seen on HD, Stable, No complaints voiced OBJECTIVE Vital Signs Vital Signs Date Time Temp Pulse Resp B/P (MAP) Pulse Ox O2 Delivery O2 Flow Rate FiO2 10/20/18 03:25 98.1 69 18 128/51 (76) 92 Room Air 98.1 10/19/18 13:29 2.0 I & 0 l Intake and Output 10/20/18 07:00 Intake Total 1090 ml Balance 1090 ml Intake Oral 1090 ml # Voids 6 PHYSICAL EXAM Physical Exam General: No acute distress HEENT: OM moist Lungs: Clear to auscultation, Non labored Heart: S1S2, RRR, Abdomen: Normal bowel sounds, Soft, Extremities: Trace LE edema Lt > Rt (Pt reports Lt was affected by polio) dressing on that left arm- AV access Skin: No rashes Neuro: Grossly normal Psych/Mental Status: Mental status NL, Mood NL - No Martines DIAGNOSIS/ASSESSMENT Assessment & Plan ESRD -On HD MWF- Dr. Varela Seen on HD, tolerating well Continue as Ordered, Dw learning coordinator Access- Lt Upper arm AVF- Bleeding S/p balloon angioplasty, Could require intermittent outflow angioplasty every 3- 6 mo with IR to maintain patency and prevent venous hypertension. CHF-? Diastolic Compensated HTN- BP high Antihypertensives Anemia- Hgb stable Diabetes mellitus per primary History CAD and stroke with cardiac stents on Brilinta COMMENT/RELEVANT DATA Meds Current Medications Medications (Trade) Dose Ordered Sig/Nga Start Time Stop Time Status Last Admin Dose Admin Acetaminophen (Tylenol) 500 mg PRN Q6HRS PRN 10/19/18 08:30 Atorvastatin Calcium (Lipitor) 10 mg QHS 10/19/18 21:00 10/19/18 21:06 10 MG Calcium Carbonate/ Glycine (Tums) 500 mg TID 10/19/18 09:00 10/19/18 21:06 500 MG Carvedilol (Coreg) 25 mg BIDWMEALS 10/19/18 08:30 10/19/18 17:23 25 MG Dextrose (Dextrose 50%-Water Syringe) 12.5 gm PRN Q15MIN PRN 10/19/18 08:30 Fentanyl Citrate (Fentanyl 2ml Vial) 100 mcg STK-MED ONCE 10/19/18 12:40 10/19/18 12:41 DC Heparin Sodium (Porcine) (Heparin Sodium) 4,000 unit 1X ONCE 10/19/18 13:15 10/19/18 13:16 DC 10/19/18 13:15 4,000 UNIT Heparin Sodium/ Sodium Chloride (HEPARIN for ARTERIAL LINE FLUSH) 1,000 unit 1X ONCE 10/19/18 12:45 10/19/18 12:46 DC 10/19/18 12:45 1,000 UNIT Hydralazine HCl (Apresoline Inj) 10 mg PRN Q4HRS PRN 10/19/18 08:30 Hydralazine HCl (Apresoline) 100 mg TID 10/19/18 09:00 10/19/18 21:06 100 MG Info (CONTRAST GIVEN -- Rx MONITORING) 1 each PRN DAILY PRN 10/19/18 12:45 10/21/18 12:44 Info (PHARMACY MONITORING -- do not chart) 1 each PRN DAILY PRN 10/20/18 08:45 Insulin Human Lispro (HumaLOG) 5 units TIDWMEALS 10/19/18 08:30 10/19/18 17:28 5 UNITS Iodixanol (Visipaque 320) 50 ml 1X ONCE 10/19/18 13:15 10/19/18 13:16 DC 10/19/18 13:15 30 ML Levothyroxine Sodium (Synthroid) 50 mcg DAILY06 10/19/18 08:30 10/20/18 05:32 50 MCG Lidocaine/Sodium Bicarbonate (Buffered Lidocaine 1%) 3 ml 1X ONCE 10/19/18 12:45 10/19/18 12:46 DC 10/19/18 12:45 2 ML Lisinopril (Prinivil) 40 mg DAILY 10/19/18 09:00 10/19/18 10:23 40 MG Midazolam HCl (Versed) 2 mg STK-MED ONCE 10/19/18 12:40 10/19/18 12:41 DC Nifedipine (Procardia Xl) 60 mg DAILY 10/19/18 09:00 10/19/18 10:22 60 MG Ondansetron HCl (Zofran) 4 mg PRN Q8HRS PRN 10/18/18 22:15 10/19/18 03:36 DC Potassium Chloride (Klor-Con) 20 meq 1X ONCE 10/19/18 10:45 10/19/18 10:46 DC Sertraline HCl (Zoloft) 150 mg DAILY 10/19/18 09:00 10/19/18 10:23 150 MG Sevelamer Carbonate (Renvela) 1,600 mg TIDWMEALS 10/19/18 09:00 10/19/18 12:09 DC 10/19/18 10:24 1,600 MG Sodium Chloride 1,000 ml @ 400 mls/hr Q2H30M PRN 10/20/18 07:00 10/20/18 18:59 Vitamin D (Vitamin D3) 2,000 unit DAILY 10/19/18 09:00 10/19/18 10:23 2,000 UNIT Lab Laboratory Tests Test 10/19/18 11:46 10/19/18 17:13 10/19/18 20:58 Glucose (Fingerstick) 126 mg/dL (70-99) 155 mg/dL (70-99) 82 mg/dL (70-99) Results All relevant outside records, renal labs, imaging studies, telemetry/EKG's were reviewed. JANIYA SANCHEZ MD October 20, 2018 10:39
--- NOTE | 2018-10-20 10:40 | PDOC3 ---
Discharge Summary Visit Information Date of Admission: October 19, 2018 Date of Discharge: October 20, 2018 Admitting Diagnosis Comment: Recurrent bleeding left AV fistula, left s/post angioplasty IR 10/19/18 ESRD on dialysis Mild hypokalemia, replaced Hx CHF, possibly diastolic Diabetes mellitus controlled History CAD and stroke with cardiac stents on Brilinta Final Diagnosis Problems Medical Problems: (1) Bleeding from dialysis shunt Status: Acute Brief Hospital Course Allergies Allergies Coded Allergies Type Severity Reaction Last Updated Verified sevelamer Allergy Severe Anaphylaxis 10/19/18 Yes Penicillins Allergy Intermediate Rash 11/19/16 Yes amlodipine Allergy Intermediate 10/19/18 Yes latex Allergy Intermediate 10/19/18 Yes morphine Allergy Intermediate 10/19/18 Yes ondansetron Allergy Intermediate 10/19/18 Yes prednisone Allergy Intermediate 10/19/18 Yes Vital Signs Vital Signs Date Time Temp Pulse Resp B/P (MAP) Pulse Ox O2 Delivery O2 Flow Rate FiO2 10/20/18 03:25 98.1 69 18 128/51 (76) 92 Room Air 98.1 10/19/18 13:29 2.0 Lab Results Laboratory Tests Test 10/18/18 20:10 10/18/18 20:45 10/19/18 02:50 10/19/18 08:42 Glucose (Fingerstick) 154 mg/dL (70-99) White Blood Count 6.5 x10^3/uL (4.0-11.0) 5.5 x10^3/uL (4.0-11.0) Red Blood Count 3.35 x10^6/uL (3.50-5.40) 3.05 x10^6/uL (3.50-5.40) Hemoglobin 11.0 g/dL (12.0-15.5) 10.0 g/dL (12.0-15.5) Hematocrit 32.4 % (36.0-47.0) 29.5 % (36.0-47.0) Mean Corpuscular Volume 97 fL (79-100) 97 fL (79-100) Mean Corpuscular Hemoglobin 33 pg (25-35) 33 pg (25-35) Mean Corpuscular Hemoglobin Concent 34 g/dL (31-37) 34 g/dL (31-37) Red Cell Distribution Width 14.7 % (11.5-14.5) 14.7 % (11.5-14.5) Platelet Count 210 x10^3/uL (140-400) 185 x10^3/uL (140-400) Neutrophils (%) (Auto) 67 % (31-73) 67 % (31-73) Lymphocytes (%) (Auto) 20 % (24-48) 19 % (24-48) Monocytes (%) (Auto) 10 % (0-9) 11 % (0-9) Eosinophils (%) (Auto) 2 % (0-3) 3 % (0-3) Basophils (%) (Auto) 1 % (0-3) 1 % (0-3) Neutrophils # (Auto) 4.4 x10^3uL (1.8-7.7) 3.7 x10^3uL (1.8-7.7) Lymphocytes # (Auto) 1.3 x10^3/uL (1.0-4.8) 1.0 x10^3/uL (1.0-4.8) Monocytes # (Auto) 0.6 x10^3/uL (0.0-1.1) 0.6 x10^3/uL (0.0-1.1) Eosinophils # (Auto) 0.2 x10^3/uL (0.0-0.7) 0.1 x10^3/uL (0.0-0.7) Basophils # (Auto) 0.1 x10^3/uL (0.0-0.2) 0.0 x10^3/uL (0.0-0.2) Sodium Level 137 mmol/L (136-145) 139 mmol/L (136-145) Potassium Level 3.3 mmol/L (3.5-5.1) 3.3 mmol/L (3.5-5.1) Chloride Level 96 mmol/L (98-107) 99 mmol/L (98-107) Carbon Dioxide Level 28 mmol/L (21-32) 28 mmol/L (21-32) Anion Gap 13 (6-14) 12 (6-14) Blood Urea Nitrogen 24 mg/dL (7-20) 26 mg/dL (7-20) Creatinine 3.4 mg/dL (0.6-1.0) 3.7 mg/dL (0.6-1.0) Estimated GFR (Cockcroft-Gault) 13.1 11.9 Glucose Level 153 mg/dL (70-99) 169 mg/dL (70-99) Calcium Level 8.8 mg/dL (8.5-10.1) 8.2 mg/dL (8.5-10.1) C-Reactive Protein, Quantitative 3.7 mg/L (0-3.3) Prothrombin Time 15.7 SEC (11.7-14.0) Prothromb Time International Ratio 1.3 (0.8-1.1) Activated Partial Thromboplast Time 42 SEC (24-38) Test 10/19/18 08:56 10/19/18 11:46 10/19/18 17:13 10/19/18 20:58 Glucose (Fingerstick) 108 mg/dL (70-99) 126 mg/dL (70-99) 155 mg/dL (70-99) 82 mg/dL (70-99) Laboratory Tests Test 10/19/18 11:46 10/19/18 17:13 10/19/18 20:58 Glucose (Fingerstick) 126 mg/dL (70-99) 155 mg/dL (70-99) 82 mg/dL (70-99) Brief Hospital Course Ms. Orozco is a 78 old pleasant white female who has had chronic, repetitive problems with that bleeding left AV fistula. Comanage with vasc surgery. IR did angioplasty and now is fcning fine and Im seeing her in dialysis. On Brilinta for cardiac stents. Okay to continue Brilinta. IR has recommended every 3-6 months of some left AV fistula intervention to keep it functioning She is aware of this. No change in home meds, discharge disposition home independent consults performed vasc surgery, IR Procedures performed IR left AV fistula angioplasty 10/19/18 Discharge Information Condition at Discharge: Improved, Stable Follow Up: Weeks (IR every 3-6 months for some left AV fistula intervention to keep it open/fcning) Disposition/Orders: D/C to Home Scheduled Calcium Carbonate (Tums X-Str) 300 Mg Tab.chew, 300 MG PO TID for heartburn, (Reported) Entered as Reported by: BRIDGETT PUGH on 10/19/1814 Last Action: Converted on 10/19/18818 by JOSE TERMULO Cholecalciferol (Vitamin D3) (D32000) 2,000 Unit Capsule, 2,000 UNIT PO DAILY for supplement, (Reported) Entered as Reported by: BRIDGETT PUGH on 10/19/1814 Last Action: Converted on 10/19/18818 by JOSE MALDONADO Hydralazine Hcl (Hydralazine Hcl) 50 Mg Tablet, 2 TAB PO TID for hypertension, (Reported) Entered as Reported by: BRIDGETT PUGH on 10/19/1814 Last Action: Converted on 10/19/18818 by JOSE MALDONADO Insulin Aspart (Novolog Flexpen) 100 Unit/1 Ml Insuln.pen, 5 UNIT SQ TID for diabetes, (Reported) Entered as Reported by: BRIDGETT PUGH on 10/19/1814 Last Action: Converted on 10/19/18818 by JOSE MALDONADO Levothyroxine Sodium (Levothyroxine Sodium) 50 Mcg Tablet, 1 TAB PO DAILY for thyroid, (Reported) Entered as Reported by: BRIDGETT PUGH on 10/19/1814 Last Action: Converted on 10/19/18818 by JOSE MALDONADO Lisinopril (Lisinopril) 40 Mg Tablet, 1 TAB PO DAILY for hypertension, (Reported) Entered as Reported by: BRIDGETT PUGH on 10/19/1814 Last Action: Continued on 10/19/18818 by JOSE MALDONADO Nifedipine (Nifedipine Er) 60 Mg Tab.er.24, 1 TAB PO DAILY for b/p, (Reported) Entered as Reported by: BRIDGETT PUGH on 10/19/1814 Last Action: Converted on 10/19/18818 by JOSE MALDONADO Pravastatin Sodium (Pravastatin Sodium) 40 Mg Tablet, 1 TAB PO QHS for cholesterol, (Reported) Entered as Reported by: BRIDGETT PUGH on 10/19/1814 Last Action: Converted on 10/19/18818 by JOSE MALDONADO Sertraline Hcl (Sertraline Hcl) 100 Mg Tablet, 1.5 TAB PO DAILY for anxiety, Ref 0 (Reported) Entered as Reported by: BRIDGETT PUGH on 10/18/18 5731 Last Action: Converted on 10/19/18818 by JOSE MALDONADO Sevelamer Carbonate (Renvela) 800 Mg Tablet, 2 TAB PO TID for ESRD, (Reported) Entered as Reported by: BRIDGETT PUGH on 10/18/182349 Last Action: Continued on 10/19/18818 by JOSE MALDONADO Ticagrelor (Brilinta) 90 Mg Tablet, 90 MG PO DAILY for blood thinner, (Reported) Entered as Reported by: BRIDGETT PUGH on 10/19/1814 Last Action: HELD on 10/19/18818 by JOSE MALDONADO Scheduled PRN Carvedilol (Carvedilol) 25 Mg Tablet, 25 MG PO BIDWMEALS PRN for ELEVATED BP, SEE COMMENTS, (Reported) Entered as Reported by: BRIDGETT PUGH on 10/19/1814 Last Action: Converted on 10/19/18818 by JOSE PINA MD October 20, 2018 10:40
[2018-10-20] MEDS: CALCIUM CARBONATE 500 MG TAB.CHEW PO SCH ×2 (11:23→11:40)
[2018-10-20] MEDS: LISINOPRIL 20 MG TABLET PO SCH (11:23)
[2018-10-20] MEDS: CARVEDILOL 12.5 MG TABLET. PO SCH (11:25)
[2018-10-20] MEDS: CHOLECALCIFEROL (VITAMIN D3) 1,000 UNIT TABLET PO SCH (11:25)
[2018-10-20] MEDS: SERTRALINE 50 MG TABLET. PO SCH (11:25)
[2018-10-20 11:33] VITALS: BP 160/53
--- NOTE | 2018-10-20 12:51 | NUR ---
Discharge Note: [facility] Discharge instructions and discharge home medications reviewed with Patient and a copy given. All questions have been answered and understanding verbalized. The following instructions and handouts were given: ESRD Discontinued lines and drains: Peripheral IV intact. Patient discharged to Home or Self Care with Family Member via Wheelchair
== END 2018-10-20 12:52 | disposition home or self-care (01) | DRG 252 ==
LOC: ER 20:04 → 6 SOUTH 21:30 → OBSVTOIN 10-19 10:50
PROVIDERS: ADMIT Internal Medicine; ATTEND Internal Medicine
PROC: 05763ZZ Dilation of Left Subclavian Vein, Percutaneous Approach (ICD-10-PCS; 2018-10-19)
PROC: 5A1D70Z Performance of Urinary Filtration, Intermittent, Less than 6 Hours Per Day (ICD-10-PCS; principal; 2018-10-20)
DX: T82.838A Hemorrhage due to vascular prosthetic devices, implants and grafts, initial encounter (principal); N18.6 End stage renal disease; I13.2 Hypertensive heart and chronic kidney disease with heart failure and with stage 5 chronic kidney disease, or end stage renal disease; I87.1 Compression of vein; I50.9 Heart failure, unspecified; E11.22 Type 2 diabetes mellitus with diabetic chronic kidney disease; Y84.1 Kidney dialysis as the cause of abnormal reaction of the patient, or of later complication, without mention of misadventure at the time of the procedure; I25.10 Atherosclerotic heart disease of native coronary artery without angina pectoris; E87.6 Hypokalemia; Y83.8 Other surgical procedures as the cause of abnormal reaction of the patient, or of later complication, without mention of misadventure at the time of the procedure; Y92.89 Other specified places as the place of occurrence of the external cause; Z86.73 Personal history of transient ischemic attack (TIA), and cerebral infarction without residual deficits; Z90.710 Acquired absence of both cervix and uterus; Z95.5 Presence of coronary angioplasty implant and graft; Z99.2 Dependence on renal dialysis; Z82.49 Family history of ischemic heart disease and other diseases of the circulatory system; Z79.02 Long term (current) use of antithrombotics/antiplatelets; Z88.0 Allergy status to penicillin; Z88.8 Allergy status to other drugs, medicaments and biological substances; Z88.6 Allergy status to analgesic agent; Z91.040 Latex allergy status
CPT/HCPCS: 36415; 36901; 36907; 80048; 82962; 85025; 85610; 85730; 86140; 93880; 99152; 99153; C1725; C1769; C1892; C1894; G0378; G0379; J1644; J1815; J2250; J3010; Q9967; 97116; 99285-25